=== PATIENT | male | born 1980 ===

== ENCOUNTER 2017-03-21 11:01 | Emergency (ER) | payer OTHER ==
--- NOTE | 2017-03-21 11:41 | ED PDOC ---
HPI: Abdomen Time Seen by Provider: 03/21/17 11:22 Chief Complaint (Nursing): Abdominal Pain Chief Complaint (Provider): Abdominal pain History Per: Patient History/Exam Limitations: no limitations Onset/Duration Of Symptoms: Days (x1 week) Current Symptoms Are (Timing): Still Present Pain Scale Rating Of: 6 Location Of Pain/Discomfort: RUQ Associated Symptoms: Constipation. denies: Fever, Nausea, Vomiting, Diarrhea, Chest Pain, Urinary Symptoms Exacerbating Factors: Movement, Walking Last Bowel Movement: Days Ago (x2) Additional Complaint(s): Saul Stevenson is a 37 year old male, with a past medical history of kidney stones, who presents to the emergency department complaining of right sided constant flank pain onset 1 week ago. Patient reports the pain starts in the right upper quadrant and radiates to the right flank and is worst with movement. He has only used over the counter patches for the pain. Patient has been constipated for the last couple of days, last bowel movement was 2 days ago. Patient denies any fever, vomit, nausea, diarrhea, dysuria, rash or chest pain. No further medical complaints. PMD: None provided. Past Medical History Reviewed: Historical Data, Nursing Documentation, Vital Signs Vital Signs: Last Vital Signs Temp 98.9 F 03/21/17 13:53 Pulse 85 03/21/17 13:53 Resp 17 03/21/17 13:53 BP 135/82 03/21/17 13:53 Pulse Ox 97 03/21/17 13:53 - Medical History PMH: Kidney Stones - Family History Family History: States: Unknown Family Hx - Social History Current smoker - smoking cessation education provided: No Alcohol: None Drugs: Denies - Home Medications Home Medications: Ambulatory Orders Medication Instructions Recorded Cyclobenzaprine [Cyclobenzaprine 10 mg PO TID #9 tab 03/21/17 HCl] Ibuprofen [Motrin] 600 mg PO Q6 PRN #20 tab 03/21/17 - Allergies Allergies/Adverse Reactions: Allergies Allergy/AdvReac Type Severity Reaction Status Date / Time No Known Allergies Allergy Verified 03/21/17 11:24 Review of Systems ROS Statement: Except As Marked, All Systems Reviewed And Found Negative Constitutional: Negative for: Fever Cardiovascular: Negative for: Chest Pain Gastrointestinal: Positive for: Abdominal Pain (constant right upper quadrant pain radiating to right flank), Constipation. Negative for: Nausea, Vomiting, Diarrhea Skin: Negative for: Rash Physical Exam - Reviewed Nursing Documentation Reviewed: Yes Vital Signs Reviewed: Yes - Physical Exam Appears: Positive for: Well (appears comfortable), Non-toxic, No Acute Distress Head Exam: Positive for: ATRAUMATIC, NORMAL INSPECTION, NORMOCEPHALIC Skin: Positive for: Normal Color, Warm, Dry. Negative for: Rash Eye Exam: Positive for: EOMI, Normal appearance, PERRL Neck: Positive for: Normal, Painless ROM, Supple Cardiovascular/Chest: Positive for: Regular Rate, Rhythm. Negative for: Murmur Respiratory: Positive for: Normal Breath Sounds. Negative for: Respiratory Distress Gastrointestinal/Abdominal: Positive for: Normal Exam, Bowel Sounds, Soft, Tenderness (Right upper quadrant ) Back: Positive for: Normal Inspection (No midline tenderness). Negative for: L CVA Tenderness, R CVA Tenderness Extremity: Positive for: Normal ROM. Negative for: Deformity Neurologic/Psych: Positive for: Alert, Oriented. Negative for: Motor/Sensory Deficits - Laboratory Results Result Diagrams: 03/21/17 11:50 03/21/17 11:50 - ECG O2 Sat by Pulse Oximetry: 98 (RA) Pulse Ox Interpretation: Normal - Progress Re-evaluation Time: 13:35 Condition: Re-examined, Improved Medical Decision Making Medical Decision Making: Initial Impression: Right flank pain. Differential includes: renal calculus, musculoskeletal pain, gallbladder disease. Initial Plan: --Abd & Pelvis w/o PO or IV cont [CT] --Comp Metabolic Panel --Urine dipstick --CBC w/ differential --Toradol 30 mg IVP --reevaluation 1308 Abd & Pelvis CT FINDINGS: LOWER THORAX: Unremarkable. LIVER: Normal size and contour. Diffusely diminished attenuation consistent with fatty infiltration. No mass. No biliary ductal dilatation. GALLBLADDER AND BILE DUCTS: Partially contracted. No calcified gallstones. No mural thickening. PANCREAS: Unremarkable. No gross lesion or ductal dilatation. SPLEEN: Minimally enlarged measuring 13.5 cm in greatest dimension. No mass. ADRENALS: Unremarkable. No mass. KIDNEYS AND URETERS: Two small adjacent nonobstructing right upper pole renal calculi, 6 mm greatest dimension. These are seen as separate calculi on the coronal images, with wide/ bone windows (series 601, image 80). Multiple small nonobstructing left renal calculi, largest upper pole, measuring 5 mm. No renal mass. No hydronephrosis. No hydroureter or ureteral calculus. VASCULATURE: Unremarkable. No aortic aneurysm. BOWEL: Unremarkable. No obstruction. No gross mural thickening. APPENDIX: Unremarkable. Normal appendix. PERITONEUM: Unremarkable. No free fluid. No free air. LYMPH NODES: Unremarkable. No enlarged lymph nodes. BLADDER: Unremarkable. REPRODUCTIVE: Normal prostate BONES: No acute fracture. OTHER FINDINGS: None. IMPRESSION: Bilateral small nonobstructing renal calculi. No hydroureter or ureteral calculus. Fatty infiltration of the liver. Minimal splenomegaly. No other significant abnormality. Scribe Attestation: Documented by Alberto Newberry, acting as a scribe for Tara Randle MD Provider Scribe Attestation: All medical record entries made by the Scribe were at my direction and personally dictated by me. I have reviewed the chart and agree that the record accurately reflects my personal performance of the history, physical exam, medical decision making, and the department course for this patient. I have also personally directed, reviewed, and agree with the discharge instructions and disposition. Disposition - Clinical Impression Clinical Impression: Flank pain, Kidney stone - Patient ED Disposition Is Patient to be Admitted: No Doctor Will See Patient In The: Office Counseled Patient/Family Regarding: Studies Performed, Diagnosis, Need For Followup - Disposition Referrals: [facility] [Outside] Disposition: Routine/Home Disposition Time: 13:40 Condition: GOOD Additional Instructions: Take your medications as instructed. Follow up with your PCP in 2-3 days. Prescriptions: Cyclobenzaprine [Cyclobenzaprine HCl] 10 mg PO TID #9 tab Ibuprofen [Motrin] 600 mg PO Q6 PRN #20 tab PRN Reason: Pain, Moderate (4-7) Instructions: Flank Pain (ED) Print Language: SETSWA[place]
[2017-03-21 12:05] LABS: BASO % 0.3 % (0.0-2.0); EOS # 0.1 K/uL (0.0-0.7); EOS % 1.4 % (0.0-4.0); HEMATOCRIT 50.7 % (35.0-51.0); LYMPH # 1.3 K/uL (1.0-4.3); LYMPH % 22.2 % (20.0-40.0); MEAN CELL VOLUME 79.2 fl (80.0-94.0); MEAN CORPUSCULAR HEMOGLOBIN 27.2 pg (27.0-31.0); MEAN CORPUSCULAR HGB CONC 34.3 g/dL (33.0-37.0); MEAN PLATELET VOLUME 6.6 fl (7.2-11.7); MONO # 0.5 K/uL (0.0-0.8); MONO % 9.1 % (0.0-10.0); NEUT # 3.9 K/uL (1.8-7.0); NRBC % 0.1 % (0.0-0.0); RED CELL DISTRIBUTION WIDTH 14.4 % (11.5-14.5); WHITE BLOOD COUNT 5.9 K/uL (4.8-10.8)
[2017-03-21 12:15] LABS: ALB/GLOB RATIO 1.4 (1.0-2.1); ALKALINE PHOSPHATASE 87 U/L (38-126); ALT/SGPT 73 U/L (21-72); AST/SGOT 51 U/L (17-59); BILIRUBIN,TOTAL 0.9 mg/dl (0.2-1.3); BLOOD UREA NITROGEN 13 mg/dl (9-20); CALCIUM 9.7 mg/dL (8.4-10.2); CARBON DIOXIDE 25 mmol/L (22-30); CHLORIDE 103 mmol/L (98-107); GFR AFRICAN-AMERICAN > 60; GLUCOSE,RANDOM 99 mg/dL (75-110); POTASSIUM 4.1 MMOL/L (3.6-5.0); SODIUM 141 mmol/l (132-148)
--- NOTE | 2017-03-21 13:10 | CT ---
PROCEDURE: CT Abdomen and Pelvis without intravenous contrast HISTORY: right flank pain COMPARISON: None. TECHNIQUE: Without contrast.. Contrast Dose: 0 Radiation dose: Total exam DLP = 1096.85 mGy-cm. This CT exam was performed using one or more of the following dose reduction techniques: Automated exposure control, adjustment of the mA and/or kV according to patient size, and/or use of iterative reconstruction technique. FINDINGS: LOWER THORAX: Unremarkable. LIVER: Normal size and contour. Diffusely diminished attenuation consistent with fatty infiltration. No mass. No biliary ductal dilatation. GALLBLADDER AND BILE DUCTS: Partially contracted. No calcified gallstones. No mural thickening. PANCREAS: Unremarkable. No gross lesion or ductal dilatation. SPLEEN: Minimally enlarged measuring 13.5 cm in greatest dimension. No mass. ADRENALS: Unremarkable. No mass. KIDNEYS AND URETERS: Two small adjacent nonobstructing right upper pole renal calculi, 6 mm greatest dimension. These are seen as separate calculi on the coronal images, with wide/ bone windows (series 601, image 80). Multiple small nonobstructing left renal calculi, largest upper pole, measuring 5 mm. No renal mass. No hydronephrosis. No hydroureter or ureteral calculus. VASCULATURE: Unremarkable. No aortic aneurysm. BOWEL: Unremarkable. No obstruction. No gross mural thickening. APPENDIX: Unremarkable. Normal appendix. PERITONEUM: Unremarkable. No free fluid. No free air. LYMPH NODES: Unremarkable. No enlarged lymph nodes. BLADDER: Unremarkable. REPRODUCTIVE: Normal prostate BONES: No acute fracture. OTHER FINDINGS: None. IMPRESSION: Bilateral small nonobstructing renal calculi. No hydroureter or ureteral calculus. Fatty infiltration of the liver. Minimal splenomegaly. No other significant abnormality.
[2017-03-21 13:54] VITALS: BP 135/82; PULSE 85; RESP 17; TEMP 98.9
[2017-03-21 14:30] VITALS: O2SAT 98
== END 2017-03-21 13:54 | disposition home or self-care (01) ==
LOC: H.ER 11:01
DX: R10.9 Unspecified abdominal pain (principal); M54.9 Dorsalgia, unspecified
CPT/HCPCS: 74176; 80053; 85025; 96374; 99282; J1885